=== PATIENT | female | born 1955 | race African-American/Black ===

== ENCOUNTER 2017-05-26 13:29 | Emergency (ER) | payer OTHER ==
[~2017-05-26] VITALS: Ht 154.9 cm; Wt 127.0 kg
[~2017-05-26 13:29] MED LIST: ADVAIR 100-501 EACH INH; ALBUTEROL2.5 MG/0.1 INH; ALDACTONE25 MG PO; ASPIRIN81 M2 PO; ATORVASTATIN CA40 MG PO; CALCIUM 500 +1 EAC5 PO; FISH OIL 1,0001 EAC5 PO; FLONASE 0.05%50 MCG NASAL; GABAPENTIN100 MG PO; GLIPIZIDE XL2.5 MG PO; GLUCOTROL10 MG PO; IRON325 PO; K-DUR 20 MEQ T20 MEQ PO; LIDODERM 5%1 PATCH TOP; LIPITOR40 MG PO; LISINOPRIL40 MG PO; LISINOPRIL5 MG PO; MAGOX 400400 MG PO; METOPROLOL SUCC25 M1 PO; NAPROSYN250 MG PO; NITROGLYCERIN0.4 MG SUBLING; NORCO 5-325 TA1 EACH PO; OS-CAL 500+D C1 EACH PO; PLAVIX 75 MG TA75 M1 PO; PREVACID15 MG PO; PREVACID30 MG PO; TOPROL XL50 MG PO; ULTRA-LIGHT RO1 EACH MC; ULTRAM 50MG TAB50 MG PO; VITAMIN D 5050000 I1; VITAMIN D1000 UNI1 PO
[2017-05-26] MEDS ORDERED: GLUCOTROL5 MG PO (14:17)
[2017-05-26] MEDS ORDERED: IRON325 PO (14:18)
[2017-05-26] MEDS ORDERED: FISH OIL 1,001000 M2 PO (14:19)
[2017-05-26] MEDS ORDERED: LASIX 20 MG TAB20 MG PO (14:19)
[2017-05-26] MEDS ORDERED: LAMISIL AT 1% C12 G1 TOP (14:20)
[2017-05-26] MEDS ORDERED: LAMISIL250 MG PO (14:20)
[2017-05-26 14:33] LABS: ABSOLUTE NEUTROPHILS 4.6 thou/uL (1.4-8.2); HEMATOCRIT 34.9 % (37.0-47.0); HEMOGLOBIN 11.4 gm/dL (12.0-15.0); LYMPHOCYTES 34.5 % (24.0-44.0); MCH 28.2 pg (26.0-34.0); MCHC 32.6 g/dL (28.0-37.0); MCV 86.4 fL (80.0-100.0); MONOCYTES 5.6 % (1.0-8.0); PLATELET COUNT 206 thou/uL (150-400); POLYS 55.9 % (36.0-66.0); RBC 4.03 mil/uL (4.20-5.00); RDW 14.4 % (10.5-14.5); WBC 8.2 thou/uL (4.0-11.0)
[2017-05-26 14:45] LABS: CALCIUM 8.8 mg/dL (8.5-10.1); CREATININE 1.1 mg/dL (0.6-1.0)
[2017-05-26 14:50] LABS: POTASSIUM 2.8 mmol/L (3.5-5.1)
[2017-05-26] MEDS ORDERED: POTASSIUM20 PO (16:22)
[2017-05-26 17:41] VITALS: BP 117/59
== END 2017-05-26 17:42 | disposition home or self-care (01) ==
LOC: ER 13:29
PROVIDERS: Emergency Medicine
DX: R51 Headache (principal); E78.5 Hyperlipidemia, unspecified; I12.9 Hypertensive chronic kidney disease with stage 1 through stage 4 chronic kidney disease, or unspecified chronic kidney disease; E11.22 Type 2 diabetes mellitus with diabetic chronic kidney disease; N18.9 Chronic kidney disease, unspecified; Z90.710 Acquired absence of both cervix and uterus; I25.2 Old myocardial infarction; Z88.0 Allergy status to penicillin; Z88.8 Allergy status to other drugs, medicaments and biological substances

== ENCOUNTER 2017-08-22 19:39 | Emergency (ER) | payer OTHER ==
[~2017-08-22] VITALS: Ht 154.9 cm; Wt 117.9 kg
--- NOTE | ~2017-08-22 | EKG ---
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
[~2017-08-22 19:39] MED LIST changes: +FISH OIL 1,001000 M2 PO; +GLUCOTROL5 MG PO; +LAMISIL AT 1% C12 G1 TOP; +LAMISIL250 MG PO; +LASIX 20 MG TAB20 MG PO; +POTASSIUM20 PO
[2017-08-22 20:20] LABS: URINE BILIRUBIN NEGATIVE (Negative); URINE BLOOD TRACE (Negative); URINE CLARITY CLEAR; URINE COLOR YELLOW; URINE GLUCOSE-RANDOM* NEGATIVE (Negative); URINE KETONES NEGATIVE (Negative); URINE LEUKOCYTES-REFLEX NEGATIVE (Negative); URINE NITRITE-REFLEX NEGATIVE (Negative); URINE PROTEIN (DIPSTICK) NEGATIVE (Negative); URINE SPECIFIC GRAVITY 1.025 (1.005-1.035); URINE UROBILINOGEN 0.2 E.U./dl (0.2-1.0)
[2017-08-22 20:52] LABS: ABSOLUTE NEUTROPHILS 5.4 thou/uL (1.4-8.2); EOSINOPHILS 2.2 % (0.0-3.0); HEMATOCRIT 38.7 % (37.0-47.0); HEMOGLOBIN 12.6 gm/dL (12.0-15.0); LYMPHOCYTES 34.7 % (24.0-44.0); MCH 28.2 pg (26.0-34.0); MCHC 32.5 g/dL (28.0-37.0); MCV 86.6 fL (80.0-100.0); MONOCYTES 6.2 % (1.0-8.0); PLATELET COUNT 201 thou/uL (150-400); POLYS 55.9 % (36.0-66.0); RBC 4.47 mil/uL (4.20-5.00); RDW 14.4 % (10.5-14.5); WBC 9.7 thou/uL (4.0-11.0)
[2017-08-22 21:07] LABS: CALCIUM 10.4 mg/dL (8.5-10.1); CREATININE 1.4 mg/dL (0.6-1.0); POTASSIUM 3.9 mmol/L (3.5-5.1)
[2017-08-22 21:12] LABS: ALBUMIN 3.1 g/dL (3.4-5.0); MAGNESIUM 1.4 mg/dL (1.8-2.4); PHOSPHORUS 3.9 mg/dL (2.5-4.9); TOTAL BILIRUBIN 0.3 mg/dL (<0.1-1.0); TOTAL PROTEIN 7.6 g/dL (6.4-8.2)
[2017-08-22] MEDS ORDERED: MAG-OXIDE400 MG PO (21:38)
[2017-08-23 00:39] LABS: LARGE PLATELETS FEW
== END 2017-08-22 21:58 | disposition home or self-care (01) ==
LOC: ER 19:39
PROVIDERS: Emergency Medicine
DX: R20.2 Paresthesia of skin (principal); E83.42 Hypomagnesemia; C50.912 Malignant neoplasm of unspecified site of left female breast; E78.5 Hyperlipidemia, unspecified; I12.0 Hypertensive chronic kidney disease with stage 5 chronic kidney disease or end stage renal disease; E11.22 Type 2 diabetes mellitus with diabetic chronic kidney disease; N18.9 Chronic kidney disease, unspecified; Z87.442 Personal history of urinary calculi; Z88.0 Allergy status to penicillin; Z88.6 Allergy status to analgesic agent

== ENCOUNTER 2017-09-13 20:34 | Inpatient (IN) | payer OTHER ==
[~2017-09-13] VITALS: Ht 154.9 cm; Wt 117.5 kg
--- NOTE | ~2017-09-13 | HC ---
[facility] [place] [address] CONSULTATION Name: WANDER SMITH Room #: 220-P [place] M.R.#: [id number] Admission: 09/13/17 Attend Phys: Magdalena Marley Discharge: Date of : 53 Report #: [id number] THIS REPORT FOR: //name// CC: Magdalena Prather DATE OF SERVICE: 09/16/2017 REFERRING PROVIDER: Dr. Marley. REASON FOR CONSULT: Right upper quadrant abdominal pain. HISTORY OF PRESENT ILLNESS: The patient is a 62-year-old female who presented with a 1 month history of perioral numbness, dehydration and chronic nausea with diarrhea. The patient does complain of intermittent abdominal pain as well and has been evaluated with laboratories, a gastric emptying study and MRI of the head, a CT scan of the abdomen and pelvis and an ultrasound of the abdomen just this morning. The patient's labs are within normal limits, however, she complains of her abdominal pain. Her gastric emptying study did show significantly delayed gastric emptying. Her CT scan showed a moderate sized hiatal hernia. It is for the abdominal pain with nausea that I am asked to evaluate. PAST MEDICAL HISTORY: Hypertension, hyperlipidemia, type 2 diabetes mellitus, chronic kidney disease stage 3, partial hysterectomy, coronary artery disease status post MD with an occluded distal RCA, intractable nausea and asthma. HOME MEDICATIONS: Include Ultram, magnesium oxide, Lidoderm patch, albuterol, Flonase, calcium, vitamin D3, Prevacid, glipizide, iron, fish oil, Lasix, Lamisil. ALLERGIES: PENICILLIN and PROPOXYPHENE. SOCIAL HISTORY: The patient does not utilize tobacco, alcohol or illicit drugs. FAMILY HISTORY: Reviewed and noncontributory. REVIEW OF SYSTEMS: GENERAL: The patient denies nocturnal fevers or chills. HEENT: No change in vision, change in hearing. NECK: No swelling or difficulty swallowing. HEART: No chest pain or palpitations. LUNGS: No cough or shortness of breath. ABDOMEN: Abdominal pain with chronic nausea and vomiting. GENITOURINARY: No dysuria or hematuria. ENDOCRINE: No polyuria, polydipsia. [facility] [address] [place] [address] CONSULTATION Name: WANDER SMITH Room #: 220-P [place] M.R.#: [id number] Admission: 09/13/17 Attend Phys: Magdalena Marley Discharge: Date of : 53 Report #: [id number] HEMATOLOGIC: No history of bleeding or easy bruising. EXTREMITIES: No history weakness or limited range of motion. NEUROLOGIC: No history of syncope or near syncopal episodes. SKIN AND INTEGUMENT: No history of abnormal lesions or moles. PSYCHIATRIC: No history of anxiety or depression. PHYSICAL EXAMINATION: VITAL SIGNS: Temperature 98.2, pulse 98, respirations 18, blood pressure 127/60, stands 5 feet 1 inch tall and weighs 259 pounds. GENERAL: Alert, in no acute distress. HEENT: Normocephalic, atraumatic. Pupils are equal, round, reactive to light. NECK: Supple without lymphadenopathy. Trachea midline. HEART: Regular rate and rhythm. LUNGS: Clear to auscultation bilaterally. ABDOMEN: Soft, nontender, nondistended. GENITOURINARY: Normal external female genitalia. EXTREMITIES: No clubbing, cyanosis or edema. NEUROLOGIC: Cranial nerves 2-12 are grossly intact. PSYCHIATRIC: Normal mood and affect. SKIN AND INTEGUMENT: No abnormal lesions or moles. LABORATORY AND X-RAY DATA: CBC shows white blood cell count 7.4 thousand, hemoglobin 12.1, platelets 174,000. Creatinine is 1.1. Liver function enzymes normal. Albumin is low at 2.9. Urine culture, normal helen. Ultrasound of the abdomen shows a positive sonographic Nascimento sign, but no evidence of gallbladder wall thickening, calculi or pericholecystic fluid. No ductal dilatation. Gastric emptying study showed markedly delayed gastric emptying to 126 minutes with upper limits of normal being [address] scan of the abdomen and pelvis shows no pathology intraabdominally. MRI of the head shows no acute intracranial abnormality. ASSESSMENT AND PLAN: A 62-year-old female with delayed gastric emptying and chronic abdominal pain with nausea, who has severe protein calorie malnutrition in addition to multiple medical problems as delineated above. Her ultrasound did show positive sonographic Nascimento sign with no evidence of acute cholecystitis, otherwise; however, I will obtain a PIPIDA scan today to evaluate further. All future recommendations will be left in the patient's medical record as appropriate. I sincerely appreciate this consult and will follow the patient closely and as stated will leave all additional information and orders in the medical record as appropriate. I do sincerely appreciate this consult. <ELECTRONICALLY SIGNED> By: Jami Pardo MD, FACS 09/17/17 0837 [id number] Jami Pardo MD, FACS /nt
[~2017-09-13 20:34] MED LIST changes: +MAG-OXIDE400 MG PO
[2017-09-13 20:37] VITALS: BP 109/76
[2017-09-13 21:34] LABS: URINE BLOOD 1+ (Negative); URINE CLARITY SL CLOUDY; URINE GLUCOSE-RANDOM* NEGATIVE (Negative); URINE KETONES NEGATIVE (Negative); URINE LEUKOCYTES-REFLEX NEGATIVE (Negative); URINE NITRITE-REFLEX NEGATIVE (Negative); URINE PROTEIN (DIPSTICK) 1+ (Negative); URINE SPECIFIC GRAVITY >= 1.030 (1.005-1.035)
[2017-09-13 21:37] LABS: ICTOTEST (BILI CONFIRMATORY) Negative (Negative); URINE BILIRUBIN NEGATIVE (Negative); URINE COLOR YELLOW/ORANGE
[2017-09-13 21:42] LABS: MUCUS >6 Heavy strn/LPF (None Seen); SQUAMOUS >10 Many /LPF (0-3)
[2017-09-13 21:43] LABS: BACTERIA-REFLEX >30 Many /HPF (None Seen); CRYSTALS None Seen /LPF (None Seen); HYALINE CASTS 0-3 Few /LPF (None Seen); URINE RBC 0-2 Rare /HPF (0-2); URINE WBC-REFLEX 0-5 Rare /HPF (0-5)
[2017-09-13 21:52] LABS: ABSOLUTE NEUTROPHILS 4.6 thou/uL (1.4-8.2); BASOPHILS 1.6 % (0.0-2.0); EOSINOPHILS 1.9 % (0.0-3.0); HEMATOCRIT 42.8 % (37.0-47.0); HEMOGLOBIN 14.2 gm/dL (12.0-15.0); MCH 28.6 pg (26.0-34.0); MCHC 33.2 g/dL (28.0-37.0); MCV 86.1 fL (80.0-100.0); MONOCYTES 7.1 % (1.0-8.0); POLYS 46.4 % (36.0-66.0); RBC 4.97 mil/uL (4.20-5.00); RDW 14.1 % (10.5-14.5)
[2017-09-13 21:58] LABS: CALCIUM 9.9 mg/dL (8.5-10.1); CREATININE 1.6 mg/dL (0.6-1.0); POTASSIUM 4.6 mmol/L (3.5-5.1)
[2017-09-13 22:03] LABS: ALBUMIN 3.3 g/dL (3.4-5.0); DIRECT BILIRUBIN 0.2 mg/dL (<0.1-0.3); TOTAL BILIRUBIN 0.5 mg/dL (<0.1-1.0); TOTAL PROTEIN 8.1 g/dL (6.4-8.2)
[2017-09-13 22:43] LABS: LARGE PLATELETS RARE; PLATELET COUNT 193 thou/uL (150-400)
[2017-09-13 23:57] VITALS: BP 120/72
[2017-09-14 00:34] VITALS: BP 145/86
[2017-09-14 04:25] VITALS: BP 132/70
[2017-09-14 07:44] LABS: CALCIUM 9.6 mg/dL (8.5-10.1); MAGNESIUM 2.1 mg/dL (1.8-2.4); POTASSIUM 3.7 mmol/L (3.5-5.1)
[2017-09-14 07:55] LABS: CALCIUM 9.2 mg/dL (8.5-10.1); PHOSPHORUS 4.4 mg/dL (2.5-4.9)
[2017-09-14] MEDS ORDERED: LYRICA 50 MG50 MG PO (09:43)
[2017-09-14 19:15] VITALS: BP 105/61
[2017-09-15 04:30] VITALS: BP 104/61
[2017-09-15 07:10] VITALS: BP 124/67
[2017-09-15 16:02] VITALS: BP 129/67
[2017-09-15 20:38] VITALS: BP 121/59
[2017-09-16 04:42] VITALS: BP 127/60
[2017-09-16 11:46] LABS: HEMATOCRIT 36.7 % (37.0-47.0); MCH 28.4 pg (26.0-34.0); MCHC 32.9 g/dL (28.0-37.0); MCV 86.2 fL (80.0-100.0); RBC 4.25 mil/uL (4.20-5.00); RDW 14.4 % (10.5-14.5); WBC 7.4 thou/uL (4.0-11.0)
[2017-09-16 11:48] LABS: HEMOGLOBIN 12.1 gm/dL (12.0-15.0)
[2017-09-16 11:56] LABS: CALCIUM 9.7 mg/dL (8.5-10.1); CREATININE 1.1 mg/dL (0.6-1.0); POTASSIUM 4.5 mmol/L (3.5-5.1)
[2017-09-16 12:03] LABS: ALBUMIN 2.9 g/dL (3.4-5.0); TOTAL BILIRUBIN 0.4 mg/dL (<0.1-1.0); TOTAL PROTEIN 6.9 g/dL (6.4-8.2)
[2017-09-16 19:35] VITALS: BP 117/70
[2017-09-17 07:30] VITALS: BP 129/66
== END 2017-09-17 16:15 | DRG 73 ==
LOC: ER 20:34 → EROBS 23:40 → 4E 23:40 → ENTRNSPT 09-15 13:41 → EDTRNSPTSTS 09-15 14:01 → SICU 09-16 19:21
PROVIDERS: Emergency Medicine; Nurse Practitioner Acute Care; Surgery
DX: E11.43 Type 2 diabetes mellitus with diabetic autonomic (poly)neuropathy (principal); N17.0 Acute kidney failure with tubular necrosis; E44.1 Mild protein-calorie malnutrition; Z68.42 Body mass index [BMI] 45.0-49.9, adult; K31.84 Gastroparesis; I12.9 Hypertensive chronic kidney disease with stage 1 through stage 4 chronic kidney disease, or unspecified chronic kidney disease; E78.5 Hyperlipidemia, unspecified; K44.9 Diaphragmatic hernia without obstruction or gangrene; E83.42 Hypomagnesemia; N18.3 Chronic kidney disease, stage 3 (moderate); I25.10 Atherosclerotic heart disease of native coronary artery without angina pectoris; J45.909 Unspecified asthma, uncomplicated; E11.22 Type 2 diabetes mellitus with diabetic chronic kidney disease; E66.9 Obesity, unspecified; I25.2 Old myocardial infarction; Z87.442 Personal history of urinary calculi; Z90.710 Acquired absence of both cervix and uterus; Z79.02 Long term (current) use of antithrombotics/antiplatelets; Z79.899 Other long term (current) drug therapy; Z88.0 Allergy status to penicillin; Z88.8 Allergy status to other drugs, medicaments and biological substances; Z82.49 Family history of ischemic heart disease and other diseases of the circulatory system; Z80.3 Family history of malignant neoplasm of breast; Z80.0 Family history of malignant neoplasm of digestive organs; Z83.3 Family history of diabetes mellitus
CPT/HCPCS: 10084; 15000

== ENCOUNTER 2017-11-04 16:34 | Emergency (ER) | payer OTHER ==
[~2017-11-04] VITALS: Ht 154.9 cm; Wt 113.0 kg
--- NOTE | ~2017-11-04 | EKG ---
[place] [address] [facility] [place] [address] ELECTROCARDIOGRAM REPORT Name: WANDER SMITH Room #: DEP Latasha#: [id number] Admission: 11/04/17 Attend Phys: Discharge: 11/04/17 Date of : 53 Report #: [id number] THIS REPORT FOR: //name// 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 11/05/17 0818 171 171 Louis Masters MD, FACC /EPI
[~2017-11-04 16:34] MED LIST changes: +LYRICA 50 MG50 MG PO
[2017-11-04 17:21] LABS: ABSOLUTE NEUTROPHILS 7.5 thou/uL (1.4-8.2); BASOPHILS 0.8 % (0.0-2.0); EOSINOPHILS 1.2 % (0.0-3.0); HEMATOCRIT 35.9 % (37.0-47.0); HEMOGLOBIN 11.8 gm/dL (12.0-15.0); LYMPHOCYTES 21.4 % (24.0-44.0); MCH 28.4 pg (26.0-34.0); MCHC 32.9 g/dL (28.0-37.0); MCV 86.3 fL (80.0-100.0); MONOCYTES 5.8 % (1.0-8.0); PLATELET COUNT 187 thou/uL (150-400); POLYS 70.8 % (36.0-66.0); RBC 4.15 mil/uL (4.20-5.00); RDW 14.5 % (10.5-14.5); WBC 10.6 thou/uL (4.0-11.0)
[2017-11-04 17:32] LABS: CREATININE 1.3 mg/dL (0.6-1.0); POTASSIUM 3.3 mmol/L (3.5-5.1)
[2017-11-04 17:37] LABS: ALBUMIN 2.6 g/dL (3.4-5.0); TOTAL BILIRUBIN 0.3 mg/dL (<0.1-1.0)
[2017-11-04 17:39] LABS: LIPASE 79 U/L (73-393)
[2017-11-04 17:55] LABS: TROPONIN-I <0.06 ng/mL (<0.06)
[2017-11-04] MEDS ORDERED: ADVAIR HFA 230M12 GM INH (18:03)
[2017-11-04] MEDS ORDERED: GABAPENTIN 100100 MG PO (18:04)
[2017-11-04] MEDS ORDERED: ASPIR 8181 MG PO (18:04)
[2017-11-04] MEDS ORDERED: VENTOLIN HFA 1818 GM INH (18:06)
[2017-11-04 18:24] LABS: URINE BILIRUBIN NEGATIVE (Negative); URINE BLOOD NEGATIVE (Negative); URINE CLARITY SL CLOUDY; URINE COLOR YELLOW; URINE GLUCOSE-RANDOM* NEGATIVE (Negative); URINE KETONES NEGATIVE (Negative); URINE NITRITE-REFLEX NEGATIVE (Negative); URINE PROTEIN (DIPSTICK) 1+ (Negative); URINE SPECIFIC GRAVITY >= 1.030 (1.005-1.035)
[2017-11-04 18:25] LABS: URINE LEUKOCYTES-REFLEX TRACE (Negative)
[2017-11-04 18:34] LABS: CASTS None Seen /LPF (None Seen); CRYSTALS None Seen /LPF (None Seen); MUCUS >6 Heavy strn/LPF (None Seen); SQUAMOUS 4-10 Moderate /LPF (0-3); URINE RBC 3-10 Few /HPF (0-2); URINE WBC-REFLEX 6-15 Few /HPF (0-5)
[2017-11-04] MEDS ORDERED: PHENERGAN 25 MG25 M1 PO (18:56)
== END 2017-11-04 19:19 | disposition home or self-care (01) ==
LOC: ER 16:34
PROVIDERS: Physician Assistant
DX: R11.0 Nausea (principal); R53.81 Other malaise; M79.674 Pain in right toe(s); E78.00 Pure hypercholesterolemia, unspecified; I12.9 Hypertensive chronic kidney disease with stage 1 through stage 4 chronic kidney disease, or unspecified chronic kidney disease; E11.22 Type 2 diabetes mellitus with diabetic chronic kidney disease; N18.3 Chronic kidney disease, stage 3 (moderate); I25.2 Old myocardial infarction; J45.909 Unspecified asthma, uncomplicated; E78.5 Hyperlipidemia, unspecified; Z90.12 Acquired absence of left breast and nipple; Z90.710 Acquired absence of both cervix and uterus; Z88.1 Allergy status to other antibiotic agents; Z88.0 Allergy status to penicillin; Z88.8 Allergy status to other drugs, medicaments and biological substances